=== PATIENT | female | born 1995 | race Caucasian/White ===

== ENCOUNTER 2020-08-08 22:22 | Inpatient (IN) | payer OTHER, SELFPAY ==
[~2020-08-08] VITALS: Ht 160 cm; Wt 116.6 kg
[2020-08-08] MEDS ORDERED: MORPHINE SULFATE 5 MG/ML VIAL IVP PRN (22:35)
[2020-08-08] MEDS ORDERED: MISOPROSTOL 200 MCG TAB VG PRN (22:35)
[2020-08-08] MEDS ORDERED: ONDANSETRON 4 MG/2 ML VIAL IVP PRN (22:35)
[2020-08-08] MEDS ORDERED: OXYTOCIN 20 UNITS in LACTATED RINGERS 1,000 ML IV SCH (22:35)
[2020-08-08] MEDS: LACTATED RINGERS 1,000 ML IV SCH (23:15)
[2020-08-08] MEDS ORDERED: AMPICILLIN 2,000 MG in NACL 0.9% 100 ML IV SCH (23:25)
[2020-08-08] MEDS ORDERED: AMPICILLIN 2,000 MG VIAL ONE (23:49)
[2020-08-08 23:56] LABS: APPEARANCE,URINE HAZY (CLEAR); BILIRUBIN,URINE NEGATIVE (NEGATIVE); BLOOD, URINE NEGATIVE (NEGATIVE); COLOR,URINE YELLOW (YELLOW); LEUKOCYTE ESTERASE ,URINE NEGATIVE (NEGATIVE); NITRITE, URINE NEGATIVE (NEGATIVE); UGLUCOSE NEGATIVE (NEGATIVE)
[2020-08-08 23:57] LABS: BASOPHILS % (AUTO) 0.3 % (0.0-2.0); EOSINOPHILS # (AUTO) 0.1 K/uL (0-0.4); EOSINOPHILS % (AUTO) 1.3 % (0.0-4.0); HEMATOCRIT 34.9 % (36-48); HEMOGLOBIN 12.2 g/dL (12.0-16.0); LYMPHOCYTES # (AUTO) 1.7 K/uL (2.5-16.5); LYMPHOCYTES % (AUTO) 19.5 % (20.5-51.1); MEAN CORPUSCULAR HEMOGLOBIN 32 pg (27-31); MEAN CORPUSCULAR HGB CONC 35 g/dL (33-37); MEAN CORPUSCULAR VOLUME 93.1 fL (80-94); MONOCYTES # (AUTO) 0.6 K/uL (0.8-1.0); MONOCYTES % (AUTO) 6.4 % (1.7-9.3); NEUTROPHILS # (AUTO) 6.4 K/uL (1.8-7.7); NEUTROPHILS % (AUTO) 72.5 % (42.2-75.2); PLATELET COUNT (AUTO) 240 K/uL (140-450); RED BLOOD CELL COUNT(AUTO) 3.75 MIL/uL (4.20-5.40); RED CELL DISTRIBUTION WIDTH 13.7 % (11.6-13.7); WHITE BLOOD COUNT (AUTO) 8.8 K/uL (4.8-10.8)
[2020-08-09 00:06] LABS: RBC,URINE 0-5 /HPF (0-5)
[2020-08-09 00:22] LABS: ALBUMIN 2.7 g/dL (3.4-5.0); ANION GAP 15.1 (8-16); CARBON DIOXIDE 23.5 mmol/L (21-32); CREATININE 0.8 mg/dL (0.6-1.3); POTASSIUM 3.6 mmol/L (3.5-5.1); TOTAL BILIRUBIN 0.3 mg/dL (0.0-1.0)
[2020-08-09] MEDS ORDERED: MISOPROSTOL 25 MCG TAB ONE ×3 (02:07→19:42)
[2020-08-09] MEDS ORDERED: CITRIC ACID/SODIUM CITRATE 30 ML UDC PO SCH (02:55)
[2020-08-09] MEDS ORDERED: AMPICILLIN 1,000 MG in NACL 0.9% 50 ML IV SCH (04:00)
[2020-08-09] MEDS ORDERED: AMPICILLIN 1,000 MG VIAL ONE (06:32)
[2020-08-09] MEDS: LACTATED RINGERS 1,000 ML IV SCH ×2 (09:07→18:14)
--- NOTE | 2020-08-09 09:57 | NUR ---
PATIENT HAS BEEN SCREENED AND CATEGORIZED LOW NUTRITION RISK. PATIENT WILL BE SEEN WITHIN 7 DAYS OF ADMISSION. 08/15/20 BARRIE GARCIA MBA, RD
[2020-08-09] MEDS ORDERED: OXYTOCIN 20 UNITS in LACTATED RINGERS 1,000 ML IV SCH (10:00)
[2020-08-10] MEDS: LACTATED RINGERS 1,000 ML IV SCH ×3 (01:22→21:08)
[2020-08-10] MEDS ORDERED: MISOPROSTOL 25 MCG TAB ONE ×2 (02:35→10:51)
[2020-08-10 11:46] LABS: RAPID PLASMA REAGIN NON-REACTIVE (Non Reactiv)
[2020-08-10] MEDS ORDERED: MISOPROSTOL 25 MCG TAB VG SCH (12:00)
[2020-08-10] MEDS ORDERED: OXYTOCIN 20 UNITS/LR PREMIX 1,000 ML IV ONE (17:51)
[2020-08-10] MEDS ORDERED: ROPIVACAINE 0.2%/NS PREMIX 200 ML EPI ONE (20:27)
[2020-08-10] MEDS ORDERED: fentaNYL citrate 0.05 MG/ML VIAL ONE (20:33)
[2020-08-10] MEDS ORDERED: FLU VACCINE QS2020-21 0.5 ML SYR IMVAC SCH (23:10)
[2020-08-11] MEDS ORDERED: METHYLERGONOVINE 0.2 MG/ML AMP IM PRN (05:20)
[2020-08-11] MEDS ORDERED: METHYLERGONOVINE 0.2 MG TAB PO PRN (05:20)
[2020-08-11] MEDS ORDERED: IBUPROFEN 600 MG TAB PO PRN (05:20)
[2020-08-11] MEDS ORDERED: OXYTOCIN 10 UNITS/ML VIAL IM PRN (05:20)
[2020-08-11] MEDS ORDERED: MEASLES, MUMPS, AND RUBELLA 1 VIAL SQVAC PRN (05:20)
[2020-08-11] MEDS ORDERED: bisacodyL 5 MG TABEC PO PRN (05:20)
[2020-08-11] MEDS ORDERED: BENZOCAINE/MENTHOL 20%-0.5% 60 GM CAN TP PRN (05:20)
[2020-08-11] MEDS ORDERED: SIMETHICONE 80 MG TAB.CHEW PO PRN (05:20)
[2020-08-11] MEDS ORDERED: DOCUSATE SODIUM 100 MG GELCAP PO PRN (05:20)
[2020-08-11] MEDS: IBUPROFEN 800 MG TAB PO PRN (08:03)
[2020-08-11] MEDS: oxyCODONE/APAP 5/325 MG 1 TAB TAB PO PRN ×2 (13:13→19:55)
[2020-08-12 08:47] LABS: HEMATOCRIT 33.7 % (36-48); HEMOGLOBIN 11.6 g/dL (12.0-16.0)
[2020-08-12] MEDS: IBUPROFEN 800 MG TAB PO PRN (13:52)
[2020-08-13] MEDS: IBUPROFEN 800 MG TAB PO PRN (02:55)
== END 2020-08-13 21:58 | disposition home or self-care (01) | DRG 560 ==
LOC: MLD 22:22 → MFCC 08-11 08:15
PROVIDERS: ADMIT Obstetrics & Gynecology; ATTEND Obstetrics & Gynecology
PROC: 10E0XZZ Delivery of Products of Conception, External Approach (ICD-10-PCS; principal; 2020-08-11)
PROC: 3E0R3BZ Introduction of Anesthetic Agent into Spinal Canal, Percutaneous Approach (ICD-10-PCS; 2020-08-11)
PROC: 00HU33Z Insertion of Infusion Device into Spinal Canal, Percutaneous Approach (ICD-10-PCS; 2020-08-11)
PROC: 0KQM0ZZ Repair Perineum Muscle, Open Approach (ICD-10-PCS; 2020-08-11)
PROC: 3E0D7GC Introduction of Other Therapeutic Substance into Mouth and Pharynx, Via Natural or Artificial Opening (ICD-10-PCS; 2020-08-11)
DX: O99.284 Endocrine, nutritional and metabolic diseases complicating childbirth (principal); O99.02 Anemia complicating childbirth; O70.1 Second degree perineal laceration during delivery; Z37.0 Single live birth; Z20.822 Contact with and (suspected) exposure to COVID-19; Z3A.39 39 weeks gestation of pregnancy; D64.9 Anemia, unspecified
CPT/HCPCS: 36415; 51702; 59200; 59409; 76815; 80053; 81001; 85018; 85025; 86592; 86886; 86900; 86901; 87086; 87653-90; 90715; J0290; J2590; J2795; J3010; J7120